=== PATIENT | male | born 1965 | race Caucasian/White ===

== ENCOUNTER 2021-03-27 08:22 | Emergency (ER) | payer OTHER ==
--- NOTE | 2021-03-27 09:06 | EDM.PDOC ---
ED HPI GENERAL MEDICAL PROBLEM - General Chief Complaint: Syncope Stated Complaint: RT ARM NUMBNESS/DIZZY Time Seen by Provider: 03/27/21 08:37 Source of Information: Reports: Patient History Limitations: Reports: No Limitations - History of Present Illness INITIAL COMMENTS - FREE TEXT/NARRATIVE: 55-year-old male presents the emergency department today with complaints of dizziness, nausea and right pinky finger numbness. Per the patient's report, he states he felt well this morning and drove to work. As he was getting out of his car to going to work, he states he felt a sudden onset of extreme dizziness with associated nausea. He states at that time his hands became cold clammy and he had numbness noted to the lateral aspect of his right pinky finger. Prior to today he states he has felt well. He is denied any recent fever, chills, nausea or vomiting. Denies headache or cough. He states he did have some associated shortness of breath at the time of the dizziness however he states that has resolved. He also states that the numbness in his pinky finger has resolved however he still has dizziness. Describes it as feeling like the room is spinning. He denies any lightheadedness. He denies any blurred vision or double vision. He denies any history of vertigo. - Related Data Allergies Allergy/AdvReac Type Severity Reaction Status Date / Time No Known Allergies Allergy Verified 03/27/21 08:41 Home Meds: Home Meds Aspirin [Halfprin] 81 mg PO BEDTIME 04/08/19 [History] Cholecalciferol (Vitamin D3) [Vitamin D3] 5,000 unit PO DAILY 04/08/19 [History] Dulaglutide [Trulicity] 1.5 mg SQ MORE 04/08/19 [History] Fish Oil/[place]-3 Fatty Acids [Fish Oil 1,000 MG] 1,000 mg PO DAILY 04/08/19 [History] Ibuprofen 600 mg PO Q6HR PRN 20 Days #100 tablet 04/08/19 [Rx] atorvaSTATin [Lipitor] 10 mg PO BEDTIME 04/08/19 [History] metFORMIN HCl [Metformin HCl] 1,000 mg PO BID 04/08/19 [History] Past Medical History HEENT History: Reports: None Cardiovascular History: Reports: High Cholesterol Respiratory History: Reports: Sleep Apnea Other Respiratory History: Patient uses CPAP Gastrointestinal History: Reports: GERD Genitourinary History: Reports: None Musculoskeletal History: Reports: Osteoarthritis Neurological History: Reports: None Psychiatric History: Reports: None Endocrine/Metabolic History: Reports: Diabetes, Type II, Obesity/BMI 30+ Hematologic History: Reports: None Immunologic History: Reports: None Oncologic (Cancer) History: Reports: None Dermatologic History: Reports: None - Infectious Disease History Infectious Disease History: Reports: Novel Coronavirus - Past Surgical History Head Surgeries/Procedures: Reports: None HEENT Surgical History: Reports: Oral Surgery Cardiovascular Surgical History: Reports: None Respiratory Surgical History: Reports: None GI Surgical History: Reports: Appendectomy Male Surgical History: Reports: None Endocrine Surgical History: Reports: None Neurological Surgical History: Reports: None Musculoskeletal Surgical History: Reports: Knee Replacement Other Musculoskeletal Surgeries/Procedures:: Left total knee arthroplasty - History Comment History Comment: metformin, trulicity, asa, statin, fish oil, vit d3, Social & Family History - Family History Family Medical History: No Pertinent Family History Cardiac: Reports: None Endocrine/Metabolic: Reports: Diabetes, type II Oncologic: Reports: None - Tobacco Use Tobacco Use Status *Q: Current Every Day Tobacco User Years of Tobacco use: 4 Packs/Tins Daily: 0.2 - Caffeine Use Caffeine Use: Reports: Coffee, Energy Drinks - Recreational Drug Use Recreational Drug Use: No ED ROS GENERAL - Review of Systems Review Of Systems: Comprehensive ROS is negative, except as noted in HPI. ED EXAM, DIZZINESS - Physical Exam Exam: See Below Exam Limited By: No Limitations General Appearance: Alert, WD/WN, No Apparent Distress Eye Exam: Bilateral Eye: EOMI, PERRL Nystagmus: reproducible Ears: Normal External Exam, Normal Canal, Hearing Grossly Normal, Normal TMs Nose: Normal Inspection, Normal Mucosa Throat/Mouth: Normal Inspection, Normal Lips, Normal Voice, No Airway Compromise Head Exam: Atraumatic, Normocephalic Neck: Normal Inspection, Supple Respiratory/Chest: No Respiratory Distress, Lungs Clear, Normal Breath Sounds, No Accessory Muscle Use, Chest Non-Tender Cardiovascular: Normal Peripheral Pulses, Regular Rate, Rhythm, No Edema, No Murmur GI/Abdominal: Normal Bowel Sounds, Soft, Non-Tender, No Distention (Male) Exam: Deferred Rectal (Males) Exam: Deferred Neurological: Alert, Normal Mood/Affect, CN II-XII Intact, Normal Gait, Oriented x 3 Back Exam: Normal Inspection, Full Range of Motion Extremities: Normal Inspection, Normal Range of Motion Psychiatric: Normal Affect, Normal Mood Skin Exam: Warm, Dry, Intact, Normal Color, No Rash #1 Interpretation EKG Date: 03/27/21 Time: 08:40 Rhythm: NSR Rate (Beats/Min): 88 [place]: Normal P-Wave: Present QRS: Normal ST-T: Normal QT: Normal Comparison: NA - No Prior EKG EKG Interpretation Comments: Per Dr. Mathews interpretation: Sinus rhythm at 88 bpm; left ventricular fascicular block; probable left ventricular hypertrophy Course - Vital Signs Text/Narrative:: As described above, the patient states he had sudden onset of dizziness with nausea. He did not have any vomiting. At the time of his assessment in the emergency department the patient notes dizziness when turning his head from side to side. He does not have any nystagmus when doing this. Full neuro exam was completed and this was unremarkable. States he also has dizziness with ambulation when looking down at the floor. Denies any headache. Patient is concerned he may be having a stroke or heart attack. I have ordered a CT of the head, EKG, chest x-ray, and labs to include a CBC, CMP, D-dimer, magnesium level, troponin, and TSH. Last Recorded V/S: Last Vital Signs Temp 97.4 F 03/27/21 08:36 Pulse 84 03/27/21 08:36 Resp 20 03/27/21 08:36 BP 160/95 H 03/27/21 08:36 Pulse Ox 99 03/27/21 08:36 - Orders/Labs/Meds Orders: Active Orders 24 hr Category Date Time Status EKG Documentation Completion [RC] STAT Care 03/27/21 09:01 Active Labs: Laboratory Tests 03/27/21 03/27/21 03/27/21 Range/Units 09:23 09:23 09:23 WBC 7.43 (4.23-9.07) K/mm3 RBC 4.42 L (4.63-6.08) M/mm3 Hgb 13.8 (13.7-17.5) gm/dl Hct 40.8 (40.1-51.0) % MCV 92.3 H (79.0-92.2) fl MCH 31.2 (25.7-32.2) pg MCHC 33.8 (32.2-35.5) g/dl RDW Std Deviation 41.0 (35.1-43.9) fL Plt Count 279 (163-337) K/mm3 MPV 9.9 (9.4-12.3) fl Neut % (Auto) 69.0 H (34.0-67.9) % Lymph % (Auto) 17.2 L (21.8-53.1) % [place] % (Auto) 10.4 (5.3-12.2) % Eos % (Auto) 2.7 (0.8-7.0) Baso % (Auto) 0.3 (0.1-1.2) % Neut # (Auto) 5.13 (1.78-5.38) K/mm3 Lymph # (Auto) 1.28 L (1.32-3.57) K/mm3 [place]bert # (Auto) 0.77 (0.30-0.82) K/mm3 Eos # (Auto) 0.20 (0.04-0.54) K/mm3 Baso # (Auto) 0.02 (0.01-0.08) K/mm3 D-Dimer, Quantitative 0.50 (0.19-0.50) mg/L Sodium 140 (136-145) mEq/L Potassium 4.2 (3.5-5.1) mEq/L Chloride 103 (98-107) mEq/L Carbon Dioxide 24 (21-32) mEq/L Anion Gap 17.2 H (5-15) BUN 9 (7-18) mg/dL Creatinine 1.0 (0.7-1.3) mg/dL Est Cr Clr Drug Dosing 96.55 mL/min Estimated GFR (MDRD) > 60 (>60) mL/min BUN/Creatinine Ratio 9.0 L (14-18) Glucose 166 H (70-99) mg/dL Calcium 8.7 (8.5-10.1) mg/dL Magnesium 2.0 (1.8-2.4) mg/dL Total Bilirubin 0.6 (0.2-1.0) mg/dL AST 23 (15-37) U/L ALT 51 (16-63) U/L Alkaline Phosphatase 78 (46-116) U/L Troponin I < 0.017 (0.00-0.056) ng/mL Total Protein 7.1 (6.4-8.2) g/dl Albumin 3.8 (3.4-5.0) g/dl Globulin 3.3 gm/dL Albumin/Globulin Ratio 1.2 (1-2) TSH 3rd Generation 1.860 (0.358-3.74) uIU/mL Meds: Medications Discontinued Medications Generic Name Dose Route Start Last Admin Trade Name Freq PRN Reason Stop Dose Admin Meclizine HCl 12.5 mg 03/27/21 09:45 03/27/21 09:54 Meclizine 12.5 Mg Tab PO 03/27/21 09:46 12.5 mg ONETIME ONE Administration - Re-Assessments/Exams Free Text/Narrative Re-Assessment/Exam: 03/27/21 10:[address] of the head: 1. Ventricles along the basal cisterns and sulci over the convexities are within normal limits for the patient's age. No abnormal parenchymal densities are seen. No evidence of intracranial hemorrhage is seen. No midline shift or mass-effect is seen. Slightly prominent calcifications within the pineal gland is seen which is believed to be within normal limits. Bone window settings were reviewed. Visualized mastoid sinuses and paranasal sinuses show nothing acute. No acute calvarial abnormality is appreciated. 2. Nothing acute is appreciated on noncontrast head CT study. Radiologist impression portable view of the chest: 1. Slightly degenerative change within the right shoulder. 2. Nothing acute is seen on portable chest x-ray. I have discussed the radiology results with the patient. Lab work is not back yet. However I elected to trial the patient on a dose of meclizine 12.5 mg p.o. 03/27/21 10:26 Hematology reveals a WBC of 7.43, hemoglobin 13.8, hematocrit 40.8, platelet count 279 D-dimer 0.50 Chemistry reveals a sodium of 140, potassium 4.2, carbon dioxide twenty-four, anion gap 17.2, BUN nine, creatinine 1.0, glucose 166, magnesium 2.0, total bilirubin 0.6, AST twenty-three, ALT fifty-one, alk phos seventy-eight, troponin less than 0.017, TSH 1.860 03/27/21 10:51 Patient states that the dizziness and nausea has resolved after receiving the meclizine and he feels much better. He will be discharged home. Departure - Departure Time of Disposition: 10:54 Disposition: Home, Self-Care 01 Condition: Good Clinical Impression: Vertigo - Discharge Information Instructions: Vertigo, [id number] Referrals: Cooper Padilla MD [Primary Care Provider] - Forms: ED Department Discharge Additional Instructions: You were seen in the emergency department today with complaints of dizziness, nausea and right pinky numbness that started abruptly this morning. CT scan of the head was completed and this was unremarkable. EKG, chest x-ray and lab work was also completed. This was all essentially unremarkable however you did look just slightly dehydrated. While you were in the emergency department you were given a medication called meclizine, and this did seem to abort the dizziness and nausea. Recommend you drink plenty of fluids and minimum caffeine. You can purchase some meclizine as it is an [id number] medication. You can take 12.5 mg 3 times daily as needed for the vertigo. This should resolve in the next few days. If it does not, recommend that you follow-up with your primary care provider in about a week. Should your condition worsen or change, do not hesitate returning to the emergency department. Sepsis Event Note (ED) - Evaluation Sepsis Screening Result: No Definite Risk - Focused Exam Vital Signs: Vital Signs Temp Pulse Resp BP Pulse Ox 03/27/21 08:36 97.4 F 84 20 160/95 H 99 - My Orders Last 24 Hours: My Active Orders 03/27/21 09:01 EKG Documentation Completion [RC] STAT - Assessment/Plan Last 24 Hours: My Active Orders 03/27/21 09:01 EKG Documentation Completion [RC] STAT
--- NOTE | 2021-03-27 09:33 | CT ---
Head CT Technique: Multiple axial sections through the brain were obtained. Intravenous contrast was not utilized. Reconstructed coronal and sagittal images were obtained. Comparison: No prior intracranial imaging is available. Findings: Ventricles along with basal cisterns and sulci over the convexities are within normal limits for the patient's age. No abnormal parenchymal densities are seen. No evidence of intracranial hemorrhage is seen. No midline shift or mass-effect is seen. Slightly prominent calcification within the pineal gland is seen which is believed to be within normal limits. Bone window settings were reviewed. Visualized mastoid sinuses and paranasal sinuses show nothing acute. No acute calvarial abnormality is appreciated. Impression: 1. Incidental finding as noted above. 2. Nothing acute is appreciated on noncontrast head CT study. Diagnostic code #2
--- NOTE | 2021-03-27 09:35 | CR ---
Chest: Portable view of the chest was obtained. Comparison: No prior chest imaging is available. Heart size and mediastinum are normal. Lungs are clear with no acute parenchymal change. Bony structure shows nothing acute. Slight degenerative change is noted within the right shoulder with mild inferior spurring off the medial and inferior humeral head. Impression: 1. Slight degenerative change within the right shoulder. 2. Nothing acute is seen on portable chest x-ray. Diagnostic code #2
[2021-03-27] MEDS ORDERED: Meclizine 12.5 MG Tab PO ONE (09:45)
== END 2021-03-27 11:00 | disposition home or self-care (01) ==
LOC: JD.ED 08:22
DX: R42 Dizziness and giddiness (principal); E78.00 Pure hypercholesterolemia, unspecified; E11.9 Type 2 diabetes mellitus without complications; E66.9 Obesity, unspecified; Z72.0 Tobacco use; Z68.30 Body mass index [BMI] 30.0-30.9, adult; Z79.84 Long term (current) use of oral hypoglycemic drugs; Z79.82 Long term (current) use of aspirin; Z79.899 Other long term (current) drug therapy
CPT/HCPCS: 36415; 70450; 71045; 80053; 83735; 84443; 84484; 85025; 85379; 93005; 99284; A9270; 93010

== ENCOUNTER 2021-08-16 04:40 | Emergency (ER) | payer OTHER ==
[2021-08-16] MEDS ORDERED: EPINEPHrine 1 MG/ML SDV IM ONE (04:50)
[2021-08-16] MEDS ORDERED: diphenhydrAMINE 50 MG/ML SDV IVPUSH ONE (04:50)
[2021-08-16] MEDS ORDERED: methylPREDNISolone Sodium Succinate 125 MG/2 ML SDV IVPUSH ONE (04:50)
[2021-08-16] MEDS ORDERED: Famotidine 20 MG/2 ML SDV ONE (04:58)
[2021-08-16] MEDS ORDERED: Famotidine 20 MG/2 ML SDV IVPUSH ONE (05:00)
--- NOTE | 2021-08-16 05:05 | EDM.PDOC ---
ED HPI GENERAL MEDICAL PROBLEM - General Chief Complaint: Allergic Reaction Stated Complaint: ALLERGIC REACTION Time Seen by Provider: 08/16/21 04:45 Source of Information: Reports: Patient History Limitations: Reports: No Limitations - History of Present Illness INITIAL COMMENTS - FREE TEXT/NARRATIVE: Patient is a 56-year-old male with past medical history of obesity, hypertension and hyperlipidemia. The patient woke up around 3 AM noticing some itchiness in rash to his upper extremities and torso. He also felt some swelling of his lip and tongue. He did take Benadryl prior to arrival and feels like his symptoms are mildly improved but still feels like his tongue, throat and lip are swollen. Denies any preceding events. Reports 1 prior allergic reaction after coming out of surgery but otherwise has not had any new foods or medications. No other interventions performed prior to arrival. - Related Data Allergies Allergy/AdvReac Type Severity Reaction Status Date / Time No Known Allergies Allergy Verified 08/16/21 05:22 Home Meds: Home Meds Aspirin [Halfprin] 81 mg PO BEDTIME 04/08/19 [History] Cholecalciferol (Vitamin D3) [Vitamin D3] 5,000 unit PO DAILY 04/08/19 [History] Dulaglutide [Trulicity] 1.5 mg SQ MORE 04/08/19 [History] Fish Oil/[place]-3 Fatty Acids [Fish Oil 1,000 MG] 1,000 mg PO DAILY 04/08/19 [History] Ibuprofen 600 mg PO Q6HR PRN 20 Days #100 tablet 04/08/19 [Rx] atorvaSTATin [Lipitor] 10 mg PO BEDTIME 04/08/19 [History] metFORMIN HCl [Metformin HCl] 1,000 mg PO BID 04/08/19 [History] EPINEPHrine [Epipen 2-[place]] 0.3 mg IJ ONETIME PRN #1 auto.injct 08/16/21 [Rx] Past Medical History HEENT History: Reports: None Cardiovascular History: Reports: High Cholesterol Respiratory History: Reports: Sleep Apnea Other Respiratory History: Patient uses CPAP Gastrointestinal History: Reports: GERD Genitourinary History: Reports: None Musculoskeletal History: Reports: Osteoarthritis Neurological History: Reports: None Psychiatric History: Reports: None Endocrine/Metabolic History: Reports: Diabetes, Type II, Obesity/BMI 30+ Hematologic History: Reports: None Immunologic History: Reports: None Oncologic (Cancer) History: Reports: None Dermatologic History: Reports: None - Infectious Disease History Infectious Disease History: Reports: Novel Coronavirus - Past Surgical History Head Surgeries/Procedures: Reports: None HEENT Surgical History: Reports: Oral Surgery Cardiovascular Surgical History: Reports: None Respiratory Surgical History: Reports: None GI Surgical History: Reports: Appendectomy Male Surgical History: Reports: None Endocrine Surgical History: Reports: None Neurological Surgical History: Reports: None Musculoskeletal Surgical History: Reports: Knee Replacement Other Musculoskeletal Surgeries/Procedures:: Left total knee arthroplasty - History Comment History Comment: metformin, trulicity, asa, statin, fish oil, vit d3, Social & Family History - Family History Family Medical History: No Pertinent Family History Cardiac: Reports: None Endocrine/Metabolic: Reports: Diabetes, type II Oncologic: Reports: None - Caffeine Use Caffeine Use: Reports: Coffee, Energy Drinks ED ROS ALLERGIC REACTION - Review of Systems Review Of Systems: See Below Free Text/Narrative/Comment: In addition to that documented in the HPI above, the additional ROS was obtained: Constitutional: Denies fevers or chills Eyes: Denies vision changes ENMT: Denies sore throat CV: Denies chest pain Resp: Denies SOB GI: Denies vomiting or diarrhea : Denies painful urination MSK: Denies recent trauma Skin: Per HPI Neuro: Denies new numbness or tingling or weakness Endocrine: Denies unexpected weight loss Heme: Denies bleeding disorders ED EXAM GENERAL NO PERIP PULSE - Physical Exam Exam: See Below Text/Narrative:: I have reviewed the triage vital signs Const: Well nourished, well developed, appears stated age Eyes: Pupils Equal and reactive to light bilaterally, no conjunctival injection HENT: Slight swelling of the lower lip. Otherwise, patient's tongue appears to be normal. Uvula is midline and not swollen. Voice is normal. Pharynx is normal. No signs of trauma or swelling, Neck supple without meningismus CV: Regular Rate Rhythm, Warm, well-perfused extremities RESP: Unlabored respiratory effort GI: soft, non-tender, non-distended, no masses MSK: No gross deformities appreciated Skin: Urticarial type rash in the bilateral upper extremities and across the torso. Neuro: Alert, dispatch manager II-XII grossly intact. Sensation and motor function of extremities grossly intact. Psych: Appropriate mood and affect. Course - Vital Signs Last Recorded V/S: Last Vital Signs Temp 36.3 C 08/16/21 04:40 Pulse 81 08/16/21 04:40 Resp 22 H 08/16/21 04:40 BP 152/97 H 08/16/21 04:40 Pulse Ox 99 08/16/21 04:40 - Orders/Labs/Meds Meds: Medications Discontinued Medications Generic Name Dose Route Start Last Admin Trade Name Freq PRN Reason Stop Dose Admin Diphenhydramine HCl 25 mg 08/16/21 04:50 08/16/21 05:00 Diphenhydramine 50 Mg/Ml Sdv IVPUSH 08/16/21 04:51 25 mg ONETIME ONE Administration Epinephrine HCl 0.5 mg 08/16/21 04:50 08/16/21 05:00 Epinephrine 1 Mg/Ml Sdv IM 08/16/21 04:51 0.5 mg ONETIME ONE Administration Famotidine 20 mg 08/16/21 21:00 Famotidine 20 Mg/2 Ml Sdv IVPUSH BEDTIME CHUCK Famotidine 20 mg 08/16/21 05:00 08/16/21 05:03 Famotidine 20 Mg/2 Ml Sdv IVPUSH 08/16/21 05:01 20 mg ONETIME ONE Administration Famotidine Confirm 08/16/21 04:58 08/16/21 05:10 Famotidine 20 Mg/2 Ml Sdv Administered 08/16/21 04:59 Not Given Dose 20 mg .ROUTE .STK-MED ONE Methylprednisolone Sodium Succinate 125 mg 08/16/21 04:50 08/16/21 04:56 Methylprednisolone Sodium Succinate 125 Mg/2 Ml Sdv IVPUSH 08/16/21 04:51 125 mg ONETIME ONE Administration Departure - Departure Time of Disposition: 06:23 Disposition: Home, Self-Care 01 Clinical Impression: Allergic reaction, Lip swelling - Discharge Information Prescriptions: EPINEPHrine [Epipen 2-Barrett] 0.3 mg IJ ONETIME PRN #1 auto.injct PRN Reason: Allergies Instructions: Allergies, Adult, [id number] Referrals: Cooper Padilla MD [Primary Care Provider] - Forms: ED Department Discharge Sepsis Event Note (ED) - Focused Exam Vital Signs: Vital Signs Temp Pulse Resp BP Pulse Ox 08/16/21 04:40 36.3 C 81 22 H 152/97 H 99 - Assessment/Plan Assessment:: Patient is a 56-year-old male presenting to the emergency room with a complaint of rash and lip swelling. Patient immediately received epinephrine Solu-Medrol and Benadryl in the emergency room. Symptoms completely resolved. He was observed to the emergency room without any return of symptoms. Unclear what the precipitating factor was. However, does not appear to be JAX inhibitor induced angioedema and does seem to be more anaphylactic in nature. Patient given prescription for EpiPen and appropriate return precautions. Highly recommended allergy testing. Patient agrees with this plan and will be discharged.
[2021-08-16] MEDS ORDERED: Famotidine 20 MG/2 ML SDV IVPUSH SCH (21:00)
== END 2021-08-16 06:37 | disposition home or self-care (01) ==
LOC: JD.ED 04:40
DX: T78.40XA Allergy, unspecified, initial encounter (principal); R22.0 Localized swelling, mass and lump, head; E66.9 Obesity, unspecified; I10 Essential (primary) hypertension; E78.00 Pure hypercholesterolemia, unspecified; E11.9 Type 2 diabetes mellitus without complications; M19.90 Unspecified osteoarthritis, unspecified site; Z68.30 Body mass index [BMI] 30.0-30.9, adult; Z79.82 Long term (current) use of aspirin; Z79.899 Other long term (current) drug therapy; Z79.84 Long term (current) use of oral hypoglycemic drugs
CPT/HCPCS: 96372; 96374; 96375; 99283; J0171; J1200; J2930; J3490

== ENCOUNTER 2021-08-31 21:53 | Emergency (ER) | payer OTHER ==
--- NOTE | 2021-08-31 22:55 | EDM.PDOC ---
ED HPI GENERAL MEDICAL PROBLEM - General Chief Complaint: Cardiovascular Problem Stated Complaint: RAPID HEARTBEAT Time Seen by Provider: 08/31/21 22:30 Source of Information: Reports: Patient, Family () History Limitations: Reports: No Limitations - History of Present Illness INITIAL COMMENTS - FREE TEXT/NARRATIVE: Mr. Pearson is a pleasant 56-year-old gentleman who now presents the ED stating that he developed rapid palpitations, a dry mouth, lightheadedness, dyspnea, nausea, and the sensation that he was walking on rubber legs, around 20:00 tonight. He states that he checked his blood pressure at home, which read 190/104, with a HR of 89 to 91 bpm. He states that he has had these symptoms about 3 times over the past 6 months, but that today's symptoms were more severe. Prior work-ups have been unremarkable. He also reports that he has had a nonproductive cough and generally felt poorly for the past week. At triage, the patient's initial BP was found to be elevated at 161/90, otherwise, he was hemodynamically stable, with HR of 82 bpm, afebrile, saturating 97% on room air. He appears to be relatively comfortable, in no acute distress. The patient states that ever since he underwent a cholecystectomy in 2019, he has occasional watery diarrhea. Otherwise, prior to tonight, he denies having a recent fever, chills, sore throat, ear pain, nasal or sinus congestion, cough, dyspnea, chest pain, palpitations, nausea, vomiting, constipation, abdominal pain, urinary symptoms, recent weight gain or weight loss, recent bloody bowel movements or black bowel movements, recent joint aches, headaches, or rashes. The patient's PCP is Dr. Cooper Padilla. He is also seen by Dr. Marissa Meeks at the [facility]. His Orthopedic Surgeon is Dr. Basim Rey. He has received 2 Pfizer COVID vaccinations plus an influenza vaccination this season. - Related Data Allergies Allergy/AdvReac Type Severity Reaction Status Date / Time No Known Allergies Allergy Verified 08/31/21 22:04 Home Meds: Home Meds Aspirin [Halfprin] 81 mg PO BEDTIME 04/08/19 [History] Cholecalciferol (Vitamin D3) [Vitamin D3] 5,000 unit PO DAILY 04/08/19 [History] Dulaglutide [Trulicity] 1.5 mg SQ MORE 04/08/19 [History] Fish Oil/Mesa-3 Fatty Acids [Fish Oil 1,000 MG] 1,000 mg PO DAILY 04/08/19 [H istory] atorvaSTATin [Lipitor] 10 mg PO BEDTIME 04/08/19 [History] metFORMIN HCl [Metformin HCl] 1,000 mg PO BID 04/08/19 [History] EPINEPHrine [Epipen 2-Barrett] 0.3 mg IJ ONETIME PRN #1 auto.injct 08/16/21 [Rx] Past Medical History Cardiovascular History: Reports: High Cholesterol Respiratory History: Reports: Sleep Apnea (nightly CPAP) Musculoskeletal History: Reports: Osteoarthritis Endocrine/Metabolic History: Reports: Diabetes, Type II, Obesity/BMI 30+ - Infectious Disease History Infectious Disease History: Reports: Novel Coronavirus - Past Surgical History HEENT Surgical History: Reports: Naso-Sinus Surgery (Septoplasty), Oral Surgery (dental extraction) GI Surgical History: Reports: Appendectomy, Cholecystectomy (2019) Musculoskeletal Surgical History: Reports: Knee Replacement (left. 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 ED EXAM, GENERAL - Physical Exam Exam: See Below Exam Limited By: No Limitations General Appearance: Alert, WD/WN, No Apparent Distress Eye Exam: Bilateral Eye: EOMI, Normal Inspection Ears: Normal External Exam, Hearing Grossly Normal Nose: Normal Inspection Throat/Mouth: Normal Inspection, Normal Lips, Normal Voice, No Airway Compromise Head: Atraumatic, Normocephalic Neck: Normal Inspection, Full Range of Motion Respiratory/Chest: No Respiratory Distress, Lungs Clear, Normal Breath Sounds, No Accessory Muscle Use Cardiovascular: Normal Peripheral Pulses, Regular Rate, Rhythm, No Gallop, No JVD, No Murmur, No Rub Peripheral Pulses: 3+: Radial (L), Radial (R) GI/Abdominal: Normal Bowel Sounds, Soft, Non-Tender, No Organomegaly, No Distention, No Abnormal Bruit, No Mass Back Exam: Normal Inspection, Full Range of Motion, NT Extremities: Normal Inspection, Normal Range of Motion, Normal Capillary Refill, Other (Trace bilateral pitting edema) Neurological: Alert, Oriented, Normal Cognition, No Motor/Sensory Deficits Psychiatric: Normal Affect Skin Exam: Warm, Dry, Intact, Normal Color, No Rash #1 Interpretation EKG Date: 08/31/21 Time: 22:03 Rhythm: NSR Rate (Beats/Min): 82 [place]: 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) P-Wave: Present QRS: Other (Poor R-wave progression) ST-T: Normal QT: Normal Comparison: No Change (03/27/2021) Course - Vital Signs Last Recorded V/S: Last Vital Signs Temp 36.2 C 08/31/21 22:03 Pulse 82 08/31/21 22:03 Resp 18 08/31/21 22:03 BP 161/90 H 08/31/21 22:03 Pulse Ox 97 08/31/21 22:03 Orthostatic Blood Pressure [ 131/98 Standing] Orthostatic Blood Pressure [ 134/85 Supine] - Orders/Labs/Meds Labs: Laboratory Tests 08/31/21 08/31/21 08/31/21 Range/Units 22:12 22:59 22:59 WBC (4.23-9.07) K/mm3 RBC (4.63-6.08) M/mm3 Hgb (13.7-17.5) gm/dl Hct (40.1-51.0) % MCV (79.0-92.2) fl MCH (25.7-32.2) pg MCHC (32.2-35.5) g/dl RDW Std Deviation (35.1-43.9) fL Plt Count (163-337) K/mm3 MPV (9.4-12.3) fl Neut % (Auto) (34.0-67.9) % Lymph % (Auto) (21.8-53.1) % [place] % (Auto) (5.3-12.2) % Eos % (Auto) (0.8-7.0) Baso % (Auto) (0.1-1.2) % Neut # (Auto) (1.78-5.38) K/mm3 Lymph # (Auto) (1.32-3.57) K/mm3 [place] # (Auto) (0.30-0.82) K/mm3 Eos # (Auto) (0.04-0.54) K/mm3 Baso # (Auto) (0.01-0.08) K/mm3 D-Dimer, Quantitative 0.51 H (0.19-0.50) mg/L Puncture Site ABG pH (7.35-7.45) ABG pCO2 (35.0-45.0) mmHg ABG pO2 (80.0-100.0) mmHg ABG HCO3 (22.0-26.0) meq/L ABG O2 Saturation (96.0-97.0) % ABG Base Excess (-2-2.0) Ben Test A-a Gradient mmHg O2 Delivery Device FiO2 (21.00-100.00) % Sodium 135 L (136-145) mEq/L Potassium 4.1 (3.5-5.1) mEq/L Chloride 101 (98-107) mEq/L Carbon Dioxide 26 (21-32) mEq/L Anion Gap 12.1 (5-15) BUN 11 (7-18) mg/dL Creatinine 1.2 (0.7-1.3) mg/dL Est Cr Clr Drug Dosing 79.53 mL/min Estimated GFR (MDRD) > 60 (>60) mL/min BUN/Creatinine Ratio 9.2 L (14-18) Glucose 267 H (70-99) mg/dL Calcium 8.8 (8.5-10.1) mg/dL Magnesium 2.1 (1.8-2.4) mg/dL Troponin I < 0.017 (0.00-0.056) ng/mL NT-Pro-B Natriuret Pep (0-125) pg/mL TSH 3rd Generation 2.253 (0.358-3.74) uIU/mL Influenza Type A RNA Positive H (NEGATIVE) Influenza Type B RNA Negative (NEGATIVE) SARS-CoV-2 RNA (CASEY) Negative (NEGATIVE) 12/18/21 12/18/21 12/18/21 Range/Units 22:59 22:59 23:00 WBC 6.11 (4.23-9.07) K/mm3 RBC 4.62 L (4.63-6.08) M/mm3 Hgb 14.0 (13.7-17.5) gm/dl Hct 41.4 (40.1-51.0) % MCV 89.6 (79.0-92.2) fl MCH 30.3 (25.7-32.2) pg MCHC 33.8 (32.2-35.5) g/dl RDW Std Deviation 40.0 (35.1-43.9) fL Plt Count 251 (163-337) K/mm3 MPV 10.0 (9.4-12.3) fl Neut % (Auto) 50.8 (34.0-67.9) % Lymph % (Auto) 29.3 (21.8-53.1) % [place] % (Auto) 13.6 H (5.3-12.2) % Eos % (Auto) 5.1 (0.8-7.0) Baso % (Auto) 0.7 (0.1-1.2) % Neut # (Auto) 3.11 (1.78-5.38) K/mm3 Lymph # (Auto) 1.79 (1.32-3.57) K/mm3 [place] # (Auto) 0.83 H (0.30-0.82) K/mm3 Eos # (Auto) 0.31 (0.04-0.54) K/mm3 Baso # (Auto) 0.04 (0.01-0.08) K/mm3 D-Dimer, Quantitative (0.19-0.50) mg/L Puncture Site Rt radial ABG pH 7.38 (7.35-7.45) ABG pCO2 40.2 (35.0-45.0) mmHg ABG pO2 86.0 (80.0-100.0) mmHg ABG HCO3 23.2 (22.0-26.0) meq/L ABG O2 Saturation 95.0 L (96.0-97.0) % ABG Base Excess -1.2 (-2-2.0) Ben Test Positive A-a Gradient 14 mmHg O2 Delivery Device Room air FiO2 21.00 (21.00-100.00) % Sodium (136-145) mEq/L Potassium (3.5-5.1) mEq/L Chloride (98-107) mEq/L Carbon Dioxide (21-32) mEq/L Anion Gap (5-15) BUN (7-18) mg/dL Creatinine (0.7-1.3) mg/dL Est Cr Clr Drug Dosing mL/min Estimated GFR (MDRD) (>60) mL/min BUN/Creatinine Ratio (14-18) Glucose (70-99) mg/dL Calcium (8.5-10.1) mg/dL Magnesium (1.8-2.4) mg/dL Troponin I (0.00-0.056) ng/mL NT-Pro-B Natriuret Pep 16 (0-125) pg/mL TSH 3rd Generation (0.358-3.74) uIU/mL Influenza Type A RNA (NEGATIVE) Influenza Type B RNA (NEGATIVE) SARS-CoV-2 RNA (CASEY) (NEGATIVE) - Re-Assessments/Exams Free Text/Narrative Re-Assessment/Exam: 08/31/21 22:51 The patient's presentation is most consistent with hyperventilation syndrome. A swab for the SARS-CoV-2 virus and influenza A + B viruses and an ECG were ordered at triage. I have ordered a work-up that includes orthostatics, numerous blood tests, an ABG, and a chest x-ray. 09/01/21 00:08 Two-view chest radiograph appears to be grossly normal. The cardiac silhouette is within normal limits. No pulmonary vascular congestion. No pleural effu sions. No focal infiltrate. No pneumothorax. Formal read per the Radiologist pending. The patient's CBC is unremarkable. His BMP is remarkable for slight hyponatremia of 135, and hyperglycemia of 267, with the remainder of his BMP being unremarkable. His magnesium level is within normal limits at 2.1. His TSH is within normal limits at 2.253. His troponin is undetectably low. His D-dimer is slightly elevated at 0.51. His pro-BNP is within normal limits at 16. His ABG demonstrates a non-anion gap metabolic acidosis. His swab for the SARS-CoV-2 virus and influenza A + B viruses is positive for influenza type A, and is negative for the others. 09/01/21 00:20 Test results discussed with the patient and his . Because this is the fourt h episode of a similar event over the past 6 months, I suspect that the patient is suffering from hyperventilation syndrome. If this were the first or second time, I would not ordinarily recommend treatment, but because this is the fourth, I am recommending that he follow-up with Dr. Padilla to discuss treatment options for anxiety. With respect to the patient's influenza A, He reports that he has had a dry cough and generally felt poorly for the past week. He is therefore out of the window of opportunity for treatment with Tamiflu. I recommended that he stay adequately hydrated and take cykg-tyq-[id number] ibuprofen as needed for discomfort. I recommended that he avoid [id number]-[id number] cough and cold remedies, as they have been shown to be of no benefit, but do have side effects, such as an upset stomach. Departure - Departure Time of Disposition: 00:21 Disposition: Home, Self-Care 01 Condition: Good Clinical Impression: Hyperventilation syndrome, Influenza A Instructions: Influenza, Adult Referrals: Cooper Padilla MD [Primary Care Provider] - Marissa Meeks MD [Ordering Only Provider] - Basim Rey MD [Ordering Only Provider] - Forms: ED Department Discharge Additional Instructions: You were seen in the emergency room after developing rapid palpitations, shortness of breath, lightheadedness, nausea, and the sense of walking on rubber legs. Work-up in the ER included positional blood pressure checks, numerous blood tests, an arterial blood gas, a swab for the SARS-CoV-2 virus and influenza A + B viruses, a chest x-ray, and an ECG. Your swab for the SARS-CoV-2 virus and influenza A + B viruses returned positive for influenza A. The remainder of your work-up was unremarkable. The cough and general malaise that you have been experiencing for the past week is most likely due to influenza. Unfortunately, it is too late to be started on the anti-influenza medicine Tamiflu. Going forward, we recommend you stay adequately hydrated and take lqkt-eqf-trjcvve ibuprofen as needed for discomfort. As discussed, we do not recommend that you take any pann-rqn-zlwfwvh cough or cold remedies, as they have been shown to be of no benefit, but do have side effects, such as an upset stomach. The remainder of your symptoms are most likely due to to a condition known as hyperventilation syndrome. Hyperventilating is usually caused by anxiety, although can be caused by a variety of medical conditions including pain, a head injury with increased intracranial pressure, metabolic acidosis, diabetic keto acidosis, uremia, salicylate toxicity, hypocalcemia, hypoglycemia, hyperthyroidism, liver failure, , severe anemia, sepsis, acute coronary event, sympathomimetic toxidrome, organic central nervous system disorders, pneumothorax, pneumonia, dysrhythmia, PE, and CHF. In your case, these have been ruled out. Since this is the 4th episode in 6 months, we recommend that you follow-up with your PCP, Dr. Jeffrey Padilla, to discuss treatment options for anxiety. If any other problems, please do not hesitate to return to the ER.
[2021-08-31 22:58] LABS: CORONAVIRUS COVID-19 NAA NEGATIVE (NEGATIVE)
--- NOTE | 2021-09-01 08:45 | CR ---
Chest: PA and lateral views of the chest were obtained. Comparison: No prior chest imaging is available. Heart size and mediastinum are normal. Lungs are clear with no acute parenchymal change. Slight disc space narrowing is scattered within the spine with minimal scattered endplate osteophytes. Impression: 1. Nothing acute is seen on 2-view chest x-ray. Diagnostic code #2
== END 2021-09-01 00:33 | disposition home or self-care (01) ==
LOC: JD.ED 21:53
DX: F45.8 Other somatoform disorders (principal); J10.1 Influenza due to other identified influenza virus with other respiratory manifestations; E78.00 Pure hypercholesterolemia, unspecified; E11.9 Type 2 diabetes mellitus without complications; E66.9 Obesity, unspecified; Z68.35 Body mass index [BMI] 35.0-35.9, adult; Z86.16 Personal history of COVID-19; Z79.82 Long term (current) use of aspirin; Z79.899 Other long term (current) drug therapy; Z79.84 Long term (current) use of oral hypoglycemic drugs; Z20.822 Contact with and (suspected) exposure to COVID-19
CPT/HCPCS: 0240U; 36415; 36600; 71046; 80048; 82803; 83735; 83880; 84443; 84484; 85025; 85379; 93005; 99285

== ENCOUNTER 2023-09-05 02:57 | Emergency (ER) | payer OTHER ==
[2023-09-05] MEDS ORDERED: methylPREDNISolone Sodium Succinate 125 MG/2 ML SDV IVPUSH ONE (03:18)
[2023-09-05] MEDS ORDERED: diphenhydrAMINE 50 MG/ML SDV IVPUSH ONE (03:19)
[2023-09-05] MEDS ORDERED: Doxepin 25 MG Cap PO ONE (03:19)
[2023-09-05] MEDS ORDERED: Famotidine 20 MG/2 ML SDV IVPUSH ONE (03:19)
[2023-09-05] MEDS ORDERED: Metoclopramide 10 MG/2 ML SDV IVPUSH ONE (03:22)
[2023-09-05] MEDS ORDERED: Sodium Chloride 0.9% 1,000 ML IV SCH (03:30)
== END 2023-09-05 04:58 | disposition home or self-care (01) ==
LOC: JD.ED 02:57
DX: T78.40XA Allergy, unspecified, initial encounter (principal); E78.00 Pure hypercholesterolemia, unspecified; E11.9 Type 2 diabetes mellitus without complications; E66.9 Obesity, unspecified; Z86.16 Personal history of COVID-19; Z90.49 Acquired absence of other specified parts of digestive tract; Z79.82 Long term (current) use of aspirin; Z79.84 Long term (current) use of oral hypoglycemic drugs; Z68.36 Body mass index [BMI] 36.0-36.9, adult
CPT/HCPCS: 93005; 96374; 96375; 99283; J1200; J2765; J2930; J3490; J7030